=== PATIENT | male | born 1970 | race Native Hawaiian/Other Pacific Islander ===

== ENCOUNTER 2017-05-17 20:32 | Inpatient (IN) | payer OTHER ==
[~2017-05-17] VITALS: Ht 170.2 cm; Wt 101.6 kg
--- NOTE | 2017-05-17 21:05 | NUR ---
ADMISSION ASSESSMENT DONE AT THIS TIME. PT IS AWAKE, ALERT, AND ORIENTED. PT C/O PAIN TO HIS RIGHT BUTTOCK THAT RADIATES TO HIS RIGHT HIP AND SCROTUM. THERE IS A 3 CM X 3 CM CYST NOTED TO THE AREA. THE AREA IS WARM TO TOUCH, RED IN COLOR, AND EDEMATOUS. THERE IS NO DRAINAGE OR ODOR NOTED FROM THE WOUND. LUNG SOUNDS ARE CLEAR THROUGHOUT BILATERALLY. S1 AND S2 HEART SOUNDS NOTED UPON AUSCULTATION. BOWEL SOUNDS ARE PRESENT IN ALL FOUR QUADRANTS. PT STATES LBM WAS ON 05/17/17. PEDAL PULSES ARE PRESENT AND EQUAL BILATERALLY. NO EDEMA NOTED TO LOWER EXT. PT VOICES NO OTHER COMPLAINTS AT THIS TIME OTHER THAN RIGHT BUTTOCK PAIN. PT WAS ORIENTED TO ROOM AND CALL LIGHT. BED WAS LOCKED AND PLACED IN LOWEST POSITION WITH SIDE RAILS UP X2. CALL PIPER IS WITHIN REACH. WILL CONTINUE TO MONITOR.
[2017-05-17 21:47] LABS: PLATELET COUNT 209 K/uL (142-355)
[2017-05-17 22:10] VITALS: BP 160/94; TEMP 98.5; Ht 170.2 cm; Wt 101.6 kg
--- NOTE | 2017-05-17 22:17 | NUR ---
WARM COMPRESS PLACED TO WOUND ON RIGHT BUTTOCK AT THIS TIME.
[2017-05-17 23:08] LABS: POTASSIUM 3.9 mmol/L (3.6-5.2); SODIUM 129 mmol/L (136-145)
--- NOTE | 2017-05-17 23:11 | NUR ---
BLOOD GLUCOSE 413 AT THIS TIME PER LAB
--- NOTE | 2017-05-17 23:26 | NUR ---
DR. GERONIMO NOTIFIED OF PT'S BLOOD GLUCOSE LEVEL. 15 UNITS OF NOVOLOG SUB Q ORDERED AT THIS TIME USING PT'S ALREADY ORDERED SLIDING SCALE INSULIN.
[2017-05-18] VITALS: BP 123/75; TEMP 98
--- NOTE | 2017-05-18 01:05 | NUR ---
ATTEMPTED TO OBTAIN WOUND CULTURE. NO DRAINAGE NOTED FROM WOUND AT THIS TIME.
--- NOTE | 2017-05-18 01:47 | NUR ---
URINE COLLECTED FOR UA AT THIS TIME AND SENT TO LAB
[2017-05-18 04:00] VITALS: BP 129/74; TEMP 97.6
[2017-05-18 08:00] VITALS: BP 129/77; TEMP 97.7
[2017-05-18 08:35] LABS: POTASSIUM 3.9 mmol/L (3.6-5.2); SODIUM 130 mmol/L (136-145)
[2017-05-18 08:38] LABS: PLATELET COUNT 198 K/uL (142-355)
[2017-05-18 12:00] VITALS: BP 142/78; TEMP 98.3
[2017-05-18 16:00] VITALS: BP 150/69; TEMP 99.2
[2017-05-18 20:00] VITALS: BP 131/79; TEMP 98.8
[2017-05-19] VITALS: BP 138/76; BP 87/38; TEMP 98.1; TEMP 98.6
[2017-05-19 04:00] VITALS: BP 132/77; BP 89/47; TEMP 97.4; TEMP 98.5
[2017-05-19 06:24] LABS: PLATELET COUNT 218 K/uL (142-355)
[2017-05-19 06:30] LABS: POTASSIUM 3.4 mmol/L (3.6-5.2); SODIUM 131 mmol/L (136-145)
--- NOTE | 2017-05-19 07:40 | NUR ---
WARM COMPRESS APPLIED TO RIGHT BUTTOCK. QUARTER REDNESS NOTED TO AREA. PT REQURESTING PAIN MED. SEE EMAR.
[2017-05-19 08:00] VITALS: BP 139/77; TEMP 98.4
--- NOTE | 2017-05-19 09:40 | NUR ---
PT TO OR. DR GERONIMO DOING I & D ON RIGHT BUTTOCK CYST.
--- NOTE | 2017-05-19 10:30 | NUR ---
REPORT RECEIVED FROM OR IMANI HERNANDEZ RN IN PACU. PACKING IODOFORM INTO AREA TRACTS 18FT TO SCROTUM. STATING WILL POSSIBLE TAKE TO OR TOMORROW.
[2017-05-19 12:00] VITALS: BP 117/61; TEMP 98.3
[2017-05-19 16:00] VITALS: BP 147/85; TEMP 98.8
[2017-05-19 20:00] VITALS: BP 149/78; TEMP 98.4
[2017-05-20] VITALS: BP 124/72; TEMP 98.2
[2017-05-20 04:00] VITALS: BP 124/76; TEMP 98.2
[2017-05-20 06:10] LABS: PLATELET COUNT 211 K/uL (142-355)
[2017-05-20 06:25] LABS: POTASSIUM 3.5 mmol/L (3.6-5.2); SODIUM 133 mmol/L (136-145)
[2017-05-20 08:00] VITALS: BP 179/77; TEMP 98.3
--- NOTE | 2017-05-20 11:48 | NUR ---
NOTIFIED PER IMANI HERNANDEZ RN PATIENT TO OR AT THIS TIME
--- NOTE | 2017-05-20 15:54 | NUR ---
DISCHARGE INSTRUCTIONS GIVEN TO PATIENT AND . IV D/C'D R FA 20G CATH TIP INTACT. AWAITING RX FOR MD SIGNATURE PRIOR TO D/C HOME
--- NOTE | 2017-05-20 16:47 | NUR ---
RX SIGNED AND GIVEN TO PATIENT AND
== END 2017-05-20 16:50 | disposition home or self-care (01) | DRG 603 ==
LOC: MED/SURG 20:32
PROVIDERS: ADMIT Family Medicine
PROC: 0H98XZZ Drainage of Buttock Skin, External Approach (ICD-10-PCS; principal; 2017-05-19)
PROC: 0H98XZZ Drainage of Buttock Skin, External Approach (ICD-10-PCS; 2017-05-20)
DX: L02.31 Cutaneous abscess of buttock (principal); E11.9 Type 2 diabetes mellitus without complications; Z91.14 Patient's other noncompliance with medication regimen; I10 Essential (primary) hypertension
CPT/HCPCS: 36415; 36591; 80053; 81000; 82948; 83036; 85027; 87040; 87070; 87205; 96365; 96366; 96367; 96372; 96374; 96375; J0744; J1170; J2001; J2250; J2405; J2704; J2765; J3010; J3490; S0028

== ENCOUNTER 2018-11-16 10:18 | Outpatient (CLI) | payer OTHER ==
[~2018-11-16] VITALS: Ht 170.2 cm; Wt 95.3 kg
[2018-11-16 10:25] VITALS: BP 140/80; TEMP 98.7
== END 2018-11-16 14:42 | disposition home or self-care (01) ==
LOC: INF 10:18 → RESP 10:18 → INF 14:42
DX: E11.65 Type 2 diabetes mellitus with hyperglycemia (principal)
CPT/HCPCS: 36600; 82805; 96360; 96361

== ENCOUNTER 2020-03-22 17:20 | Inpatient (IN) | payer OTHER ==
[~2020-03-22] VITALS: Ht 170.2 cm; Wt 108.0 kg
[2020-03-22 19:30] LABS: PLATELET COUNT 165 K/uL (142-355)
[2020-03-22 19:45] LABS: POTASSIUM 4.6 mmol/L (3.6-5.2); SODIUM 135 mmol/L (136-145)
--- NOTE | 2020-03-22 19:51 | NUR ---
IV TO LEFT TOP HAND WITH 20G JELCO TIMES ONE STICK PHENERGAN INFUSING AT 50M/L HR FOR NAUSEA
[2020-03-22 20:00] VITALS: BP 148/69; TEMP 98.1
[2020-03-22] MEDS ORDERED: METF500T PO (23:35)
[2020-03-23] VITALS (7 sets, daily range): BP systolic 127–160; BP diastolic 75–86; TEMP 97.9–101.4; Ht 170.2 cm; Wt 108.0 kg
--- NOTE | 2020-03-23 02:21 | NUR ---
03/22/[address] GERONIMO NOTIFIED OF PT SAID HE IS HAVING ANXIETY AND IS RESTLESS.REPORTED THAT PT HAS A ELEVATED TEMP 101.4.AND OXYGEN IS DROPPING INTO 88-90. SAID TO GET A RESPIRATORY CONSULT TO KEEP OXYGEN SATURATION ABOVE 90 PERCENT.ALSO TO HAVE A PHYSICAL THERAPY WITH CPT.PT HAS TELE ON WITH OXYGEN SENSOR AT DESK.OXYGEN SATURATION CAME UP TO 97 PERCENT AFTER RESP CAME IN TO SEE PATIENT.CC 03/22/2020 0100 PT RESTING MORE COMFORTABLE AND IS BREAKING THE FEVER BY SWEATING.CALL LIGHT WITHIN REACH.CC 03/22/2020 0230 RESTING QUEITLY IN BED RESP EVEN NONLABORED NAD NOTED. OXYGEN SATURATION IS 97 PERCENT.CC
--- NOTE | 2020-03-23 08:36 | NUR ---
Patient is on 1799 ada diet plan, and was admitted with COVID 19 and acute gastric pain and also has an abscess to buttocks and scrotam and is worsening with medications; acute gastric pain and is a 49YOM, and labs reveal creatinine kinase, 327 elevated, then 336 still elevated,glucose 165 elevated and T Protien elevated and alb wnl's; MCV, MCH, Na, Cl, Ca, Mg all depressed, patient is receiving Vitamin C, Zithromax, Lovenox, Pepcid, Torodol, Demerol, Zofran, Phenegan, NACl, ZNSO4, Metformin. and also has a PMH of hyperlipidemia, fatty liver and DM II. Patient is 5'7" at 238.3 lbs. IBW = 148+/-10% (133 to 163 lbs.) and kcal needs for IBW x 25 = 1700, x 30 = 2000, x 35 = 2400, x 40 = 2700 kcal/day, protein needs x 1.3 to 1.5 = 87 to 101 grams per day and fluids for ibw x 25 to 30 = 1700 to 2000 ml/cc per day and BMI for weight at 238.3 lbs. = 37.27 and is Class II Obesity and is 161% of IBW. Has a dx. of meth. resistance staph. RD Recommendations: 1-PT needs to work with to help with movement and exercise 2-Add Protein 30 ml or 1 scoop tid 3-Add Keith or Arginaid TID 4-Monitor abnormal labs 5-Add High Fiber to diet plan 6-May want to add [place] d/t Dx. acute gastric pain 7-Add foods high in Calcium 8-Add foods high in Magnesium 9-May want to add low fat to the diet plan d/t dx. hyperlipidemia and to strees the eating of MUS and PUS and to limit Saturated fat to a minimum 10-To be more liberal d/t Class II Obesity may want to go with a NCS High Fiber Low Fat diet plan and try and increase fresh fruits and vegetables and whole grains and limit processed foods expecially meats. Encourage chicken or fish that is broiled, boiled, baked, roasted, stewed, grilled or stir fried and increase these meats and then fats as olive or canola oils and add avocado and nuts, fresh fresh, fresh vegetables and if salads with vinegar and oil and whole grain breads and pastas with more than 3 grams of fiber per serving.
[2020-03-23 10:41] LABS: PLATELET COUNT 160 K/uL (142-355)
[2020-03-23 10:55] LABS: POTASSIUM 5.4 mmol/L (3.6-5.2)
--- NOTE | 2020-03-23 16:34 | NUR ---
1600 DR GERONIMO PHONED AND STATED PT'S COIVD TEST DONE IN HER OFFCIE WAS POSITIVE AND SHE WOULD FAX RESULTS OVER AND WE WOULD PLACE ON CHART
[2020-03-24 00:09] VITALS: BP 139/71; TEMP 99.4
--- NOTE | 2020-03-24 01:58 | NUR ---
03/24/20 0140 PT ELEVATED TEMP 103 ORAL.TYLENOL GIVEN.RESPIRATORY IN ROOM SMART VEST THERAPY GIVEN. PT TREMBLING AND SHAKING DUE TO FEVER.CC
[2020-03-24 04:02] VITALS: BP 141/72; TEMP 102.2
[2020-03-24 05:19] LABS: PLATELET COUNT 141 K/uL (142-355)
[2020-03-24 05:54] LABS: POTASSIUM 4.6 mmol/L (3.6-5.2)
--- NOTE | 2020-03-24 06:09 | NUR ---
03/24/20 0545 XRAY PRESENT IN ROOM TO DO EXAM.PT SAID HE WILL LIKE TO SPEAK THIS MORNING WITH DR. GERONIMO CONCERNING HIS CARE BECAUSE OF HIS FEVER.I TOLD HIM WITH THIS ILLNESS THAT MOST PEOPLE HAS SOME FEVER WITH IT.HE SAID THAT HE THINKS HIS WOULD LIKE TO SPEAK WITH HER WELL.CC
[2020-03-24 08:00] VITALS: BP 159/77; TEMP 99.2
[2020-03-24 12:00] VITALS: BP 131/70; TEMP 101.2
--- NOTE | 2020-03-24 12:29 | NUR ---
PATIENT HAS A TEMP OF 101.2 WRAPPED ICE PACKS APPLIED UNDER BILATERAL ARMS AND BEHIND HIS NECK. COOL CLOTH APPLIED TO HIS FORHEAD
--- NOTE | 2020-03-24 15:40 | NUR ---
03/23/20 @ 1815: Nelly Bell RN, notified Dr. Del Real of Patient's requests to receive additional medications for pain than what the physician has ordered and to receive Toradol 30mg with each Demerol IVP. Physician v/o understanding, no new orders received at this time.
[2020-03-24 16:00] VITALS: BP 151/79; TEMP 98.7
--- NOTE | 2020-03-24 16:02 | NUR ---
LE 03/23/20 @ 0925 AM Assessment completed at this time. Patient request TV remote, v/o. Personal items within reach on Patient's beside table. Call light within reach and instructed Patient on use of same. Patient v/o understanding. Patient's breakfast tray removed from bedside table and room tidied up for Patient. LE 03/23/20 @ 0950 Provided Patient a TV. Patient requests a cup of ice and diet coke, same provided to Patient. LE 03/23/20 @ 1010 Dr. Del Real at bedside with Patient, new orders received. LE 03/23/20 @ 1230 Patient requesting Demerol and Toradol for "fever" and generalized pain. Patient's temperature was 99.2 orally at 12pm vitals. Patient states pain level is a 8/10 numeric pain scale. LE 03/23/20 @ 1250 Administered Toradol 30mg IVP and Demerol 25mg IVP. Apologized to Patient for the delay in administering same and explained the process of scanning the new order to pharmacy and inability to remove same from [facility] until profiled. Remained in room to ensure medication relieved Patient's pain. Patient reported he felt nauseous, provided emesis basin. Cool bathclothes placed on Patient's forehead and under chin for comfort. Patient advised pain is lessening, with his head on pillow and eyes closed. LE 03/23/20 @ 1325 Patient resting quietly in bed with eyes closed. NAD noted at this time. LE 03/23/20 @ 1400 Upon entering Patient's room, Patient was resting comfortably with eyes closed. Patient aroused to audible stimuli. Per Patient's request, provided cup of ice and diet drink. Patient is lethargic and drowsy with slurred speech noted. Patient encouraged to ambulate out of bed per Dr. Del Real's orders. Patient refused. Education provided to Patient on the importance of ambulating and turning and taking deep breaths while in bed and the disease process of COVID. LE 03/23/20 @ 1550 Patient requesting medication for headache. Advised Patient Tylenol is ordered for headache. LE 03/23/20 @ 1600 [facility], told marketing writer Patient instructed her he "wants something stronger than Tylenol" and expressed her concern for him being lethargic. LE 03/23/20 @ 1648 Upon entering Patient's room with Tylenol 325mg x2 tabs per physicians orders and diet drink along with cup of ice, Patient refuses Tylenol and states "I need something stronger". Patient continues to be drowsy with slurred speach. LE 03/23/20 @ 1710 Demerol 25mg IVP given to Patient at this time. Patient questioning the administration of Toradol. Explained to Patient Toradol is scheduled for 9pm tonight as it is scheduled every 8 hours and the negative effects the medication has on the kidneys. Patient became upset and informed marketing writer Toradol and Demerol "together is the only thing that helps me with the pain". Encouraged Patient to ambulated to bedside chair as ordered by Dr. Del Real. Patient advises he is in too much pain to do so. Reiterated the importance of ambulating and exercising lungs along with the disease process. Patient continues to refuse to ambulate and remains frustrated he is unable to receive Toradol at this time. Patient remains drowsy with slurred speech. Call light within reach. Instructed Patient to call for any assistance or needs.
--- NOTE | 2020-03-24 18:05 | NUR ---
PATIENT STATED HE WAS HURTING AND NEED SOMETHING FOR PAIN AND THEN STARTED DRY HEAVING. PATIENT GIVEN DEMEROL ORDERED AND PHENERGAN. PATIENT C/O MEDICATION NOT WORKING FAST ENOUGH AND ASSURED HE NEEDED TO GIVE MEDICATIONS ENOUGH TIME TO WORK. WITH IN 5 MINUTES PATIENT NOTED RESTING WITH EYES CLOSED AND ON HIS TELEMETRY SPO2 READING 71% ON 3LPM VIA NC. PATIENT BLOOD PRESSURE READING 176/89. INCREASE O2 TO 6LPM AND NOTIFIED RESPIRATORY TO COME AND ASSESS PATIENT. O2 SATS INCREASED TO 86%. NOTIFIED AT THIS TIME DUE TO HIS O2 SATS. MARCO ANTONIO RESPIATORY IN THE ROOM WELL. 5- IN THE ROOM. RESPIRATORY IN THE ROOM. PATIENT PLACED ON VENTIMASK AT 50% WITH SPO2 INCREASING TO 87-88%. VERBAL ORDERS GIVEN TO MARCO ANTONIO TO GIVE COMBIVENT TREATMENT AND DO SMART VEST. SMART VEST DONE AT THIS TIME WITH SPO2 INCREASING TO 91%. PATIENT PLACED IN PRONE POSITION WITH SPO2 SATS INCREASING TO 94-96%.
[2020-03-24] MEDS ORDERED: COZAAR100 MG PO (19:50)
[2020-03-24] MEDS ORDERED: LANTUS SOL100 UNIT/M SC (19:54)
[2020-03-24 20:00] VITALS: BP 152/71; TEMP 100.2
[2020-03-25] VITALS: BP 144/74; TEMP 100.6
--- NOTE | 2020-03-25 02:30 | NUR ---
PT PLACED IN PRONE POS. CPT VIA HAND. PT JUAN TX WELL.
[2020-03-25 04:00] VITALS: BP 139/70; TEMP 99.4
--- NOTE | 2020-03-25 07:17 | NUR ---
PT RESTED AT INTERVALS THROUGHTOUT THE NIGHT. PRN PAIN MEDS GIVEN PER REQUEST WITH GOOD RESULTS. O2 SATS REMAINED IN THE UPPER 90'S THROUGHOUT THE NIGHT WITH THE NONREBREATHER MASK ON. ENCOURAGED PT TO REPOSITION SELF OFTEN BUT CONT TO REMAIN ON HIS BACK MOSTLY. HOB ELEVATED. IV PATENT TO LEFT HAND WITH PROCAL INFUSING AT 83 CC/HR ALONG WITH NS AT 17 CC/HR WITHOUT DIFFICULTY AND NO S/S OF INFILTRATION. PT NOTED UP X2 THIS SHIFT TO BATHROOM AND OBSERVED ONCE WHILE UP WITH DIZZY SPELL. PT DID HAVE A TEMP OF 100.6 AT 12A THIS SHIFT. TYLENOL IV GIVEN ORDERED WITH TEMP NOTED TO DECREASE TO 99.4 AT 4A. PT ALERT AND RESTING IN BED WITH NO C/O AT THIS TIME.
[2020-03-25 08:00] VITALS: BP 134/77; TEMP 98.7
[2020-03-25 09:15] LABS: POTASSIUM 4.4 mmol/L (3.6-5.2)
[2020-03-25 09:52] LABS: PLATELET COUNT 152 K/uL (142-355)
--- NOTE | 2020-03-25 10:12 | NUR ---
PATIENT CALLED NURSES STATION STATED HE NEEDED SOMETHING FOR PAIN. DEMEROL AND TYLENOL GIVEN FOR FEVER AT THIS TIME. PATIENT NOTED ANXIOUS AND SHIVERING. EXPLAINED TO PATIENT TO GIVEN MEDICATION TIME TO WORK BUT PATIENT ANXIOUS AND STATED HE WAS HAVING NAUSEA. 1048- ZOFRAN 4 MG GIVEN IV PUSH AT THIS TIME FOR NAUSEA.
[2020-03-25 12:00] VITALS: BP 189/75; TEMP 103.1
--- NOTE | 2020-03-25 12:25 | NUR ---
IN THE ROOM WITH PATIENT REGARDING HIS CONCERNS. ATIVAN GIVEN ORDERED FOLLOWED BY PHENERGAN FOR NAUSEA. PATIENT NOTED RESTING QUIETLY IN NO ACUTE DISTRESS. CURRENT SPO2 94-96%.
--- NOTE | 2020-03-25 14:00 | NUR ---
PATIENT NOTED RESTING QUIETLY AT THIS TIME. TORADOL GIVEN ORDERED IV PUSH. PATIENT IS RESTING QUIETLY.
[2020-03-25 16:00] VITALS: BP 127/73; TEMP 98.9
--- NOTE | 2020-03-25 16:18 | NUR ---
DEMEROL GIVEN ORDERED FOR PAIN. PATIENT IS IN NO ACUTE DISTRESS AT THIS TIME. WILL CONTINUE TO MONITOR.
--- NOTE | 2020-03-25 16:18 | NUR ---
REMEDSIVIR GIVEN ORDERED. PATIENT IS STILL NOTED RESTING QUIETLY. CURRENT SPO2 94%.WILL CONTINUE TO MONITOR.
[2020-03-25 20:00] VITALS: BP 109/73; TEMP 97.9
--- NOTE | 2020-03-25 23:57 | NUR ---
PT PLACED IN PRONE POS. CPTX 6 MIN TO ALL LOBES. PT TOLS TX WELL.
[2020-03-26] VITALS: BP 163/84; TEMP 98.4
--- NOTE | 2020-03-26 02:52 | NUR ---
PT PLACED IN A MODIFIED TREDLENBERG POSITION. CPT APPLIED VIA HAND MODE. PT TOLS THERAPY WELL. GOOD COUGH EFFORT.
[2020-03-26 04:00] VITALS: BP 162/88; TEMP 99.2
[2020-03-26 05:09] LABS: PLATELET COUNT 155 K/uL (142-355)
[2020-03-26 05:35] LABS: POTASSIUM 4.9 mmol/L (3.6-5.2)
--- NOTE | 2020-03-26 07:30 | NUR ---
PATIENT CALLED NURSES DESK AND STATED HE WANTED TO TAKE A SHOWER AND USE THE BATHROOM. PATIENT ASSISTED WITH GOING TO THE SHOWER AT THIS TIME. PATIENT TAKEN OFF VENTI MASK AND PLACED ON 4 LITERS WITH PROTABLE OXYGEN AND TOWELS PROVIDED AT THIS TIME. PATIENT UNHOOKED FORM MONITORS AND ASSISTED TO SHOWER WHERE HE WAS ABLE TO BATH WITHOUT ASSISTANCE.
--- NOTE | 2020-03-26 07:52 | NUR ---
IV FLUIDS AND PROCAL SPIKED AT THIS TIME. PATIENT BACK IN THE BED AND VENTI MASK REMOVED AND PATIENT PLACED ON 02 AT 6LPM VIA NC WHERE HIS O2 SATS FLUCTUATED FROM 92-94%. PATIENT TOLERATING WELL WITH RR-21 AND NON LABORED.
[2020-03-26 08:00] VITALS: BP 141/82; TEMP 98.8
--- NOTE | 2020-03-26 08:20 | NUR ---
DR. GERONIMO CALLED FOR UPDATE OF PATIENT. PROVIDED SAME TO PHYSICIAN AT THIS TIME. NO NEW ORDERS RECEIVED.
--- NOTE | 2020-03-26 08:35 | NUR ---
AM MEDICATIONS GIVEN AND AM ASSESSMENT COMPLETED AT THIS TIME. PATIENT INITIALLY REFUSED DEMEROL PER PHYSICIAN ORDERS BUT CHANGED HIS MIND AND REQUESTED THE PAIN MEDICATION. DEMEROL GIVEN VIA IVP PER PHYSICIAN ORDERS. PAIN SCALE 8/10 NUMERIC PAIN SCALE.
--- NOTE | 2020-03-26 09:45 | NUR ---
PATIENT'S AT WINDOW CONVERSING WITH PATIENT VIA CELL PHONE. TEXTILE MACHINERY SALES REPRESENTATIVE UPDATED OF PATIENT'S MEDICATIONS AND TREATMENTS RECEIVED FROM THERAPY. ADVISED PATIENT AND PATIENT MUST AMBULATE OUT OF BED AT LEAST TID PER PHYSICIAN ORDERS AND TCDB WHILE IN BED. EDUCATED PATIENT AND ON THE IMPORTANCE OF AMBULATING OUT OF BED, BOTH V/O UNDERSTANDING AT THIS TIME.
--- NOTE | 2020-03-26 10:50 | NUR ---
THERAPIST COMPLETED WITH CPT AND NOTIFIED STAFF PATIENT HAD A BOWEL MOVEMENT. ASSISTED PATIENT WITH TRANSFERRING TO BATHROOM TOILET AND THEN TO SHOWER. PATIENT'S LINENS CHANGED AT THIS TIME.
[2020-03-26 12:00] VITALS: BP 147/85; TEMP 97.6
--- NOTE | 2020-03-26 12:25 | NUR ---
PATIENT HAD CALLED NURSES STATION AND STATED HE WAS NOT FEELING WELL HE NEEDED A NURSE TO SEE HIM. THIS NURSE CAME TO SEE PATIENT AT THIS TIME. PATIENT NOTED COMING OUT OF THE BATHROOM WITH IV POLE AND HE WAS WALKING HE STATED IN A LOUD VOICE AND AGGRESSION " WHERE WERE YOU, WHY DID IT TAKE AN 1 HOUR FOR SOMEONE TO COME, I HAVE BEEN WAITING FOR OVER AN HOUR". THIS NURSE NOTIFIED PATIENT THAT SHE WAS IN AN CODE WITH ANOTHER PATIENT AND COULD NOT AT THAT TIME MAKE IT TO HIS ROOM. PATIENT THEN RESPONDED " DID EVERYONE HAVE TO GO TO THE CODE, NOBODY ELSE WAS OUT HERE". ASSURED PATIENT WHAT COULD DID HE NEED AT THIS TIME AND PATIENT STATED " I NEED HELP, GIVE ME SOMETHING TO KNOCK ME OUT, LIKE YESTERDAY". I NOTIFIED PATIENT THAT I WOULD SEE WHAT I COULD GET HIM SO THAT HE COULD REST BETTER, CURRENT SPO2 95% ON 6LPM VIA NC. PATIENT WAS NOT VOMITING OR IN RESPIRATORY DISTRESS, CURRENT TEMP 98.6 ORAL AT THIS TIME. HERE TO SEE PATIENT.
--- NOTE | 2020-03-26 14:00 | NUR ---
THERAPIST AT BEDSIDE FOR CPT. PATIENT TOLERATED WELL.
[2020-03-26 16:00] VITALS: BP 163/84; TEMP 97.5
--- NOTE | 2020-03-26 16:47 | NUR ---
DR. GERONIMO CALLED. PROVIDED PHYSICIAN WITH UPDATE STATUS OF PATIENT. NO NEW ORDERS RECEIVED AT THIS TIME.
--- NOTE | 2020-03-26 17:10 | NUR ---
ASSISTED PATIENT WITH AMBULATING TO MATEO CHAIR WITHOUT DIFFICULTY. PATIENT DENIES ANY NEEDS, C/O OR PAIN AT THIS TIME. NO S/SX OF DISTRESS NOTED.
--- NOTE | 2020-03-26 17:40 | NUR ---
PATIENT'S CALLED FOR STATUS UPDATE OF PATIENT. PER 'S REQUEST, BLINDS WERE OPENED AT THIS TIME. NO S/SX OF DISTRESS NOTED AT THIS TIME.
--- NOTE | 2020-03-26 18:03 | NUR ---
PATIENT C/O OF "A LITTLE NAUSEOUS", ZOFRAN 4MG GIVEN VIA IVP AT THIS TIME. PATIENT TOLERATED WELL. AT WINDOW VISITING WITH PATIENT VIA PERSONAL CELL PHONE.
--- NOTE | 2020-03-26 18:19 | NUR ---
PATIENT C/O OF PAIN, DEMEROL AND TORADOL GIVEN PER PHYSICIAN ORDERS.
--- NOTE | 2020-03-26 18:20 | NUR ---
PATIENT NOTED AWAKE, WATCHING TV AT THIS TIME TIME. PATIENT STATED HE WAS FEELING "OK". NO OTHER ACUTE DISTRESS WAS NOTED.
--- NOTE | 2020-03-26 18:40 | NUR ---
ASSISTED PATIENT WITH TRANSFER TO BED. PATIENT TOLERATED WELL.
--- NOTE | 2020-03-26 19:17 | NUR ---
MARCO ANTONIO, RESPIRATORY THERAPIST, AT BEDSIDE PERFORMING CPT. PT IS TOLERATING WELL AT THIS TIME AND DENIES ANY NEEDS OR C/O.
[2020-03-26 20:00] VITALS: BP 131/85; TEMP 99
--- NOTE | 2020-03-26 20:32 | NUR ---
PT PLACED IN A MODIFIED TREDLENBERG POS. IN PRONE POS. CPT PER HAND. TOLS WELL.
[2020-03-27] VITALS: BP 141/84; TEMP 98
--- NOTE | 2020-03-27 01:54 | NUR ---
PT REFUSES CPT TX DUE TO NAUSEA. NURSE AWARE OF PT'S REFUSAL.
[2020-03-27 04:00] VITALS: BP 157/87; TEMP 98.8
[2020-03-27 05:28] LABS: PLATELET COUNT 171 K/uL (142-355)
[2020-03-27 07:00] VITALS: BP 147/83; TEMP 97.7
--- NOTE | 2020-03-27 09:25 | NUR ---
RESPIRATORY AT BEDSIDE. OXYGEN VIA NC DECREASED TO 2.5LPM. WILL MONITOR PATIENT.
--- NOTE | 2020-03-27 10:36 | NUR ---
DR GERONIMO IN TO SEE PT.DISCUSSED PT'S IV FLUIDS. DR GERONIMO WANTS NS AT 17 CC/HR. NEW ORDERS.
[2020-03-27 12:00] VITALS: BP 165/85; TEMP 97.9
--- NOTE | 2020-03-27 15:20 | NUR ---
PT'S NURSE REPORTED TO THIS NURSE THAT PT WANTED TO SIGN OUT AMA & HE STATES THAT 'MY IS OUTSIDE WAITING TO TAKE ME TO [facility]EL'. DR DARNELL IS GOING TO TAKE ME.' THIS NURSE CALLED DR GERONIMO.REPORTED ABOVE. DR GERONIMO STRESSED THAT' PT DOESN'T NEED TO GO BY PRIVATE AUTO, PT NEEDS O2 TO BE TRANS TRANSPORTED.' DR GERONIMO TO CALL PT'S .
--- NOTE | 2020-03-27 15:26 | NUR ---
DR GERONIMO CALLED BACK, PT'S WILL NOT ANSWER THE TELEPHONE. INFORMED DR GERONIMO THAT I WOULD TALK WITH & SEE WHAT SHE SAID'.PT'S IN WAITING ROOM AT ER. GRIFFIN VU RN UR TRANSPORTER RADIOLOGY & MYSELF IN TO TALK WITH . GRIFFIN DISCUSSED WITH PT'S THE IMPORTANCE OF PT BEING TRANSFERRED ON O2. DISCUSSED THAT DR GERONIMO COULD TALK WITH DR DARNELL& LUIS A TRANSFER. STATES 'I JUST WANT TO TAKE HIM MYSELF'. GRIFFIN ASKED IF SHE WOULD JUST TALK WITH DR GERONIMO & AGREED & CALLED DR GERONIMO. DR GERONIMO DISCUSSED THE IMPORTANCE OF PT BEING TRANSFERRED ON OXYGEN & DISCUSSED THE CARE THAT & PT THOUGHT THAT HE NEEDED THAT HE WASN'T GETTING. STATED ' I TALKED ABOUT A POSSIBLE TRANSFER A WEEK AGO'HE WANT'S TO GET THAT PLASMA.' INSISTENT THAT SHE TAKE HIM NOW, 'HE DOESENT WANT TO WAIT'. DR GERONIMO CALLED THIS NURSE, TRYING TO CALL DR DARRELL DARNELL SEVERAL TIMES & HE WILL NOT ANSWER'. GRIFFIN INFORMED PT'S THAT HIS INSURANCE MIGHT NOT PAY FOR EITHER HOSPITALIZATION & THAT HIS MEDS HE IS GETTING FOR COVID, REMDISIVIR IS NOT READILY AVALABLE AT ALL HOSPITALS. CONTINUES TO INSIST ON TAKING PT TO [facility]. REPORTED ALL TO DR GERONIMO. DR GERONIMO STILL UNABLE TO REACH DR DARNELL.
--- NOTE | 2020-03-27 15:40 | NUR ---
THIS NURSE BACK IN SEE PT. DISCUSSED WITH PT ALL THAT WAS DISCUSSED WITH HIS . DISCUSSED HIS NEED FOR O2 & POSSIBLE QUESTIONAL AVAILABLILITY OF REMDISIVIR. PT CALLED DR DARRELL WATSONELF & PT HUNG UP & THEN STATES' DR DARNELL SAYS THAT HE HAS A ROOM & HE HAS EVERYTHING THAT I NEED'. DR GERONIMO CALLED & REPORTED ALL TO HER. PT ALREADY DRESSED & IV IS OUT.PT STATES' THAT DR DARNELL IS 'GOING TO GIVE ME PLASMA.'PT COLLECTING BELONGINGS.PT SIGNED AMA.
--- NOTE | 2020-03-27 15:55 | NUR ---
PT AMBULATING DOWN HALLWAY, ASKED PT TO PUT MASK ON PT ESCORTED TO [facility] WITH BELONGINGS. ENCOURAGED TO WEAR MASK. PUT MASK ON.REPORTED TO DR GERONIMO THAT PT WAS GONE.
== END 2020-03-27 15:55 | disposition left against medical advice (07) | DRG 177 ==
LOC: MED/SURG 17:20
PROVIDERS: ADMIT Family Medicine
DX: U07.1 COVID-19 (principal); J18.8 Other pneumonia, unspecified organism; E86.0 Dehydration; R63.0 Anorexia; I10 Essential (primary) hypertension; E11.9 Type 2 diabetes mellitus without complications; R09.02 Hypoxemia; E66.8 Other obesity; E78.49 Other hyperlipidemia
CPT/HCPCS: 36415; 80053; 81000; 82550; 82553; 82728; 83735; 84100; 84484; 85027; 85379; 86140; 87040; 93005; 94667; 94668; 94760; J0132; J0456; J1200; J1650; J1815; J1885; J2060; J2175; J2405; J2550; J3475